=== PATIENT | female | born 1935 | race Caucasian/White ===

== ENCOUNTER 2016-12-05 08:50 | Outpatient (CLI) | payer MEDICARE, MEDICAID ==
[~2016-12-05 08:50] MED LIST: AMLO5TAB2 PO; ASPI-991 PO; ATOR40TA PO; METO50TA3 PO; PANT40TA2 PO
[2016-12-05] MEDS ORDERED: REGADENOSON 0.4 MG/5 ML DISP.SYRIN IVP ONE (10:00)
[2016-12-05] MEDS ORDERED: hydrALAZINE HCL 50 MG TABLET PO ONE (11:30)
[2016-12-05] MEDS ORDERED: AMLODIPINE BESYLATE 10 MG TABLET PO ONE (11:30)
== END 2016-12-05 23:59 | disposition home or self-care (01) ==
LOC: RAD 08:50
PROVIDERS: ATTEND Internal Medicine Cardiovascular Disease
DX: R06.02 Shortness of breath (principal); R53.83 Other fatigue
CPT/HCPCS: 78452; A9502; J2785

== ENCOUNTER 2016-12-21 09:45 | Inpatient (IN) | payer MEDICARE, MEDICAID ==
[~2016-12-21] VITALS: Ht 160 cm; Wt 70.3 kg
[2016-12-21] MEDS ORDERED: ASPIRIN 325 MG TABLET ONE (09:58)
[2016-12-21] MEDS ORDERED: NITROGLYCERIN PACKET 1 GM PACKET ONE (09:58)
[2016-12-21] MEDS ORDERED: NITROGLYCERIN PACKET 1 GM PACKET TD ONE (10:00)
[2016-12-21] MEDS ORDERED: ASPIRIN 325 MG TABLET PO ONE (10:00)
[2016-12-21 10:18] LABS: BASOPHILS # (AUTO) 0.4 /CMM (0.0-0.2); DIFF TOTAL % 100 %; EOSINOPHILS # (AUTO) 0.2 /CMM (0.0-0.7); EOSINOPHILS % (AUTO) 1.3 % (0.0-6.0); HEMATOCRIT 38 % (33-45); HEMOGLOBIN 12.7 g/dL (11.5-14.8); LYMPHOCYTES # (AUTO) 2.4 /CMM (0.8-4.8); LYMPHOCYTES % (AUTO) 19.2 % (20.0-44.0); MEAN CORPUSCULAR HEMOGLOBIN 26 PG (26.0-33.0); MEAN CORPUSCULAR HGB CONC 33 g/dl (31.0-36.0); MEAN CORPUSCULAR VOLUME 77 fL (82-100); MONOCYTES # (AUTO) 1.1 /CMM (0.1-1.30); MONOCYTES % (AUTO) 8.6 % (2.0-12.0); NEUTROPHILS # (AUTO) 8.3 /CMM (1.8-8.9); NEUTROPHILS % (AUTO) 67.9 % (43.0-81.0); PLATELET COUNT (AUTO) 292 /CMM (150-450); RED BLOOD CELL COUNT(AUTO) 4.95 MIL/uL (4.0-5.2); WHITE BLOOD COUNT (AUTO) 12.4 K/uL (4.3-11.0)
[2016-12-21 10:32] LABS: INR 0.9 (0.87-1.13); PROTHROMBIN TIME 9.4 SECS (9.5-12.7)
[2016-12-21] MEDS ORDERED: HYDR100T27 PO (10:38)
[2016-12-21] MEDS ORDERED: CYCL30DR EACHEYE (10:38)
[2016-12-21] MEDS ORDERED: LINA145C PO (10:38)
[2016-12-21] MEDS ORDERED: AMLO5TAB2 PO (10:38)
[2016-12-21] MEDS ORDERED: CELE200C PO (10:38)
[2016-12-21] MEDS ORDERED: ASPI81TA2 PO (10:38)
[2016-12-21] MEDS ORDERED: OLME40TA18 PO (10:38)
[2016-12-21] MEDS ORDERED: FURO20TA4 PO (10:38)
[2016-12-21] MEDS ORDERED: OLOP2.5D EACHEYE (10:38)
[2016-12-21] MEDS ORDERED: METO25TA6 PO (10:38)
[2016-12-21] MEDS ORDERED: PANT40TA4 PO (10:38)
[2016-12-21 10:44] LABS: TROPONIN I < 0.017 ng/mL (0.00-0.056)
[2016-12-21 10:45] LABS: ALANINE AMINOTRANSFERASE 21 U/L (12-78); ALBUMIN 4.1 g/dL (3.4-5.0); ANION GAP 16 (5-14); ASPARTATE AMINOTRANSFERASE 24 U/L (15-37); BILIRUBIN,DIRECT 0.1 mg/dL (0.0-0.2); BILIRUBIN,TOTAL 0.4 mg/dL (0.2-1.0); CARBON DIOXIDE 20 mmol/L (21-32); CHLORIDE 103 mmol/L (98-107); INDIRECT BILIRUBIN 0.3 mg/dL (0.0-1.1); SODIUM SERUM 135 mmol/L (136-145); TOTAL PROTEIN, SERUM 8.2 g/dL (6.4-8.2)
[2016-12-21 10:46] LABS: CALCIUM, SERUM 9.2 mg/dL (8.5-10.1); CREATININE 0.7 mg/dL (0.6-1.3); GLUCOSE 114 mg/dL (74-106); UREA NITROGEN, BLOOD 21 mg/dL (7-18)
[2016-12-21 11:40] VITALS: BP 163/74
[2016-12-21 12:00] VITALS: BP_SYST 157; BP_SYST 166; BP_DIAS 70; BP_DIAS 77
[2016-12-21] MEDS ORDERED: IV NS 0.9% 1,000 ML IV SCH (13:30)
[2016-12-21] MEDS ORDERED: PANTOPRAZOLE 40 MG TABLET.DR PO SCH (13:30)
[2016-12-21] MEDS ORDERED: OLOPATADINE HCL EACHEYE SCH (13:30)
[2016-12-21] MEDS ORDERED: IV SET PRIMARY PUMP SET 1 EA INFUS.SET MC ONE (13:49)
[2016-12-21] MEDS: METOPROLOL TARTRATE 25 MG TABLET PO SCH ×2 (13:55→22:26)
[2016-12-21] MEDS: ATORVASTATIN 10 MG TABLET PO SCH (13:56)
[2016-12-21] MEDS: CELECOXIB 100 MG CAPSULE PO SCH (13:56)
[2016-12-21] MEDS: AMLODIPINE BESYLATE 5 MG TABLET PO SCH (13:56)
[2016-12-21] MEDS: ASPIRIN 81 MG TAB.CHEW PO SCH (13:56)
[2016-12-21] MEDS: LOSARTAN POTASSIUM 50 MG TABLET PO SCH ×2 (13:56→22:26)
[2016-12-21] MEDS ORDERED: HYDROCODONE/APAP 5/325MG 1 EACH TABLET PO PRN (14:00)
[2016-12-21] MEDS ORDERED: ONDANSETRON HCL/PF 4 MG/2 ML VIAL IVP PRN (14:00)
[2016-12-21] MEDS ORDERED: Z GUARD REMEDY 2 OZ OINT TP PRN (14:00)
[2016-12-21] MEDS ORDERED: MAGNESIUM HYDROXIDE 30 ML UDC PO PRN (14:00)
[2016-12-21] MEDS ORDERED: ACETAMINOPHEN 325 MG TABLET PO PRN (14:00)
[2016-12-21] MEDS ORDERED: MAG HYDROX/AL HYDROX/SIMETH 30 ML UDC PO PRN (14:00)
[2016-12-21] MEDS: ENOXAPARIN SODIUM 40 MG/0.4 ML DISP.SYRIN SQ SCH (14:27)
[2016-12-21 15:46] LABS: THYROID STIMULATING HORMONE 0.188 uIU/mL (0.358-3.74)
[2016-12-21 16:00] VITALS: BP 154/70
[2016-12-21] MEDS ORDERED: hydrALAZINE HCL 50 MG TABLET PO SCH (17:00)
[2016-12-21 20:00] VITALS: BP 114/56
[2016-12-21] MEDS ORDERED: ZOLPIDEM TARTRATE 5 MG TABLET PO PRN (22:00)
[2016-12-21 22:33] VITALS: BP 120/55
[2016-12-22] VITALS (10 sets, daily range): BP systolic 114–162; BP diastolic 51–71
[2016-12-22 06:54] LABS: BASOPHILS # (AUTO) 0.1 /CMM (0.0-0.2); BASOPHILS % (AUTO) 0.6 % (0.0-2.0); DIFF TOTAL % 100 %; EOSINOPHILS # (AUTO) 0.2 /CMM (0.0-0.7); EOSINOPHILS % (AUTO) 2.2 % (0.0-6.0); HEMATOCRIT 34 % (33-45); HEMOGLOBIN 11.3 g/dL (11.5-14.8); LYMPHOCYTES # (AUTO) 2.8 /CMM (0.8-4.8); LYMPHOCYTES % (AUTO) 26.3 % (20.0-44.0); MEAN CORPUSCULAR HEMOGLOBIN 26 PG (26.0-33.0); MEAN CORPUSCULAR HGB CONC 33 g/dl (31.0-36.0); MEAN CORPUSCULAR VOLUME 78 fL (82-100); MONOCYTES # (AUTO) 1.2 /CMM (0.1-1.30); MONOCYTES % (AUTO) 11.9 % (2.0-12.0); NEUTROPHILS # (AUTO) 6.2 /CMM (1.8-8.9); PLATELET COUNT (AUTO) 292 /CMM (150-450); RED BLOOD CELL COUNT(AUTO) 4.33 MIL/uL (4.0-5.2); WHITE BLOOD COUNT (AUTO) 10.5 K/uL (4.3-11.0)
[2016-12-22 07:35] LABS: TROPONIN I 0.017 ng/mL (0.00-0.056)
[2016-12-22 07:50] LABS: ALBUMIN 3.2 g/dL (3.4-5.0); BILIRUBIN,TOTAL 0.4 mg/dL (0.2-1.0); CALCIUM, SERUM 8.5 mg/dL (8.5-10.1); PHOSPHORUS 4.4 mg/dL (2.5-4.9); POTASSIUM 3.8 mmol/L (3.5-5.1); TOTAL PROTEIN, SERUM 6.7 g/dL (6.4-8.2)
[2016-12-22] MEDS: PANTOPRAZOLE 40 MG TABLET.DR PO SCH (07:50)
[2016-12-22] MEDS: LOSARTAN POTASSIUM 50 MG TABLET PO SCH ×2 (09:17→21:01)
[2016-12-22] MEDS: ASPIRIN 81 MG TAB.CHEW PO SCH (09:18)
[2016-12-22] MEDS: AMLODIPINE BESYLATE 5 MG TABLET PO SCH (09:18)
[2016-12-22] MEDS: ATORVASTATIN 10 MG TABLET PO SCH (09:18)
[2016-12-22] MEDS: METOPROLOL TARTRATE 25 MG TABLET PO SCH ×2 (09:18→16:54)
[2016-12-22] MEDS: CELECOXIB 100 MG CAPSULE PO SCH (09:18)
[2016-12-22] MEDS: ENOXAPARIN SODIUM 40 MG/0.4 ML DISP.SYRIN SQ SCH (09:22)
[2016-12-22] MEDS: ISOSORBIDE DINITRATE (20MG) 20 MG TABLET PO SCH ×2 (10:32→16:51)
[2016-12-22] MEDS: hydrALAZINE HCL 50 MG TABLET PO SCH ×2 (12:31→16:54)
[2016-12-22] MEDS: OLOPATADINE HCL 0.1% OPHTH BOTTLE EACHEYE SCH (16:50)
[2016-12-23] VITALS (10 sets, daily range): BP systolic 108–175; BP diastolic 42–88
[2016-12-23] MEDS: SUCRALFATE 1 G TABLET PO SCH ×4 (08:25→21:51)
[2016-12-23] MEDS: PANTOPRAZOLE 40 MG TABLET.DR PO SCH (08:25)
[2016-12-23] MEDS: OLOPATADINE HCL 0.1% OPHTH BOTTLE EACHEYE SCH ×2 (08:57→16:26)
[2016-12-23] MEDS: ASPIRIN 81 MG TAB.CHEW PO SCH (08:58)
[2016-12-23] MEDS: ATORVASTATIN 10 MG TABLET PO SCH (08:58)
[2016-12-23] MEDS: CELECOXIB 100 MG CAPSULE PO SCH (08:58)
[2016-12-23] MEDS: hydrALAZINE HCL 50 MG TABLET PO SCH ×3 (08:59→16:27)
[2016-12-23] MEDS: AMLODIPINE BESYLATE 5 MG TABLET PO SCH (08:59)
[2016-12-23] MEDS: VALSARTAN 80 MG TABLET PO SCH (08:59)
[2016-12-23] MEDS: ISOSORBIDE DINITRATE (20MG) 20 MG TABLET PO SCH ×2 (08:59→16:27)
[2016-12-23] MEDS ORDERED: PANTOPRAZOLE 40 MG TABLET.DR PO SCH (09:00)
[2016-12-23] MEDS: METOPROLOL TARTRATE 25 MG TABLET PO SCH ×2 (09:00→16:26)
[2016-12-23] MEDS: ENOXAPARIN SODIUM 40 MG/0.4 ML DISP.SYRIN SQ SCH (09:02)
[2016-12-23] MEDS ORDERED: DOXAZOSIN MESYLATE (1 MG) 1 MG TABLET PO SCH (22:00)
[2016-12-24] MEDS: SUCRALFATE 1 G TABLET PO SCH ×3 (07:30→17:31)
[2016-12-24] MEDS: PANTOPRAZOLE 40 MG TABLET.DR PO SCH (07:30)
[2016-12-24] MEDS: hydrALAZINE HCL 50 MG TABLET PO SCH ×3 (08:45→17:29)
[2016-12-24] MEDS: ASPIRIN 81 MG TAB.CHEW PO SCH (08:48)
[2016-12-24] MEDS: CELECOXIB 100 MG CAPSULE PO SCH (08:48)
[2016-12-24] MEDS: ATORVASTATIN 10 MG TABLET PO SCH (08:58)
[2016-12-24] MEDS: METOPROLOL TARTRATE 25 MG TABLET PO SCH ×2 (08:58→17:28)
[2016-12-24] MEDS: ISOSORBIDE DINITRATE (20MG) 20 MG TABLET PO SCH ×2 (08:58→17:28)
[2016-12-24] MEDS: AMLODIPINE BESYLATE 5 MG TABLET PO SCH (08:59)
[2016-12-24] MEDS: VALSARTAN 80 MG TABLET PO SCH (09:06)
[2016-12-24] MEDS: OLOPATADINE HCL 0.1% OPHTH BOTTLE EACHEYE SCH ×2 (09:06→17:00)
[2016-12-24] MEDS: ENOXAPARIN SODIUM 40 MG/0.4 ML DISP.SYRIN SQ SCH (09:07)
[2016-12-24 17:29] VITALS: BP 122/62
[2016-12-25] MEDS ORDERED: AMLODIPINE BESYLATE 5 MG TABLET PO SCH (09:00)
== END 2016-12-24 17:47 | disposition home or self-care (01) | DRG 303 ==
LOC: ER 09:49 → TELE 12:04 → MED 12-23 08:32
DX: I25.10 Atherosclerotic heart disease of native coronary artery without angina pectoris (principal); R79.89 Other specified abnormal findings of blood chemistry; E78.5 Hyperlipidemia, unspecified; M17.12 Unilateral primary osteoarthritis, left knee; Z87.442 Personal history of urinary calculi; Z90.49 Acquired absence of other specified parts of digestive tract; Z90.81 Acquired absence of spleen; D72.829 Elevated white blood cell count, unspecified; E05.90 Thyrotoxicosis, unspecified without thyrotoxic crisis or storm; I50.9 Heart failure, unspecified; I11.0 Hypertensive heart disease with heart failure
CPT/HCPCS: 36415; 71010-TC; 80048-TC; 80053-TC; 80061-TC; 80076-TC; 82306; 82728-TC; 83540-TC; 83735-TC; 84100-TC; 84439-TC; 84443-TC; 84484-TC; 85025-TC; 85730-TC; 87081-TC; 93307-TC; 97001-TC; 97116-TC; 97530-TC; A4606; J1650; J7030; Z7610